=== PATIENT | male | born 1990 | race Caucasian/White ===

== ENCOUNTER 2019-11-07 18:28 | Emergency (ER) | payer OTHER, BC ==
[2019-11-07] MEDS ORDERED: Bacitracin Oint 1 GM U/D Packet TOP ONE (18:52)
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
== END 2019-11-07 19:40 | disposition home or self-care (01) ==
LOC: MW.ED 18:28
DX: T22.211A Burn of second degree of right forearm, initial encounter (principal); Z88.1 Allergy status to other antibiotic agents; X08.8XXA Exposure to other specified smoke, fire and flames, initial encounter; Y92.89 Other specified places as the place of occurrence of the external cause; Y99.0 Civilian activity done for income or pay
CPT/HCPCS: 16020; 99283